=== PATIENT | male | born 1980 ===

== ENCOUNTER 2016-09-14 07:17 | Emergency (ER) | payer MEDICAID ==
--- NOTE | 2016-09-14 10:18 | UC ---
Terra Oliveros Salem, scribed for Jennifer Scott DO on 09/14/16 at 0823 . Skin Complaint HPI - HPI Summary HPI Summary: Patient is a 35 y/o male who presents to the with edema and 7/10 pain behind his left knee since yesterday morning. He reports erythema, tenderness, warmth to touch, and soreness, but denies fever, chills, coughing, abd pain, CP, or headache. Pt states that onset was sudden and suspects a spider bite. He reports that sx began 30 minutes after putting on pants. Pt denies any allergies. No hx of resistive skin infection. He reports concern because he will be traveling to [facility] recently. Patients medication reviewed this visit. - History of Current Complaint Chief Complaint: UCSkin Time Seen by Provider: 09/14/16 08:09 Stated Complaint: PAINFUL LUMP BEHIND KNEE Hx Obtained From: Patient, Family/Bounty Trapper - . Onset/Duration: Sudden Onset, Lasting Days, Still Present Timing: Constant Onset Severity: Moderate Current Severity: Moderate Pain Intensity: 7 Pain Scale Used: 0-10 Numeric Location: Other - Behind left knee. Character: Swelling, Pain, Redness Aggravating: Touch, Other - WALIKNG Alleviating: Nothing Associated Signs & Symptoms: Negative: Nausea, Vomiting, Fever, Chills, Cough, Abdominal Pain - Allergy/Home Medications Allergies/Adverse Reactions: Allergies Allergy/AdvReac Type Severity Reaction Status Date / Time No Known Allergies Allergy Verified 09/14/16 07:27 Review of Systems Constitutional: Negative Skin: Other - Edema and 7/10 pain behind the left knee. Erythema, tenderness, warmth to touch, and soreness. Eyes: Negative Cardiovascular: Negative Gastrointestinal: Negative Genitourinary: Negative All Other Systems Reviewed And Are Negative: Yes PMH/Surg Hx/FS Hx/Imm Hx Previously Healthy: Yes - Surgical History Surgical History: Yes Surgery Procedure, Year, and Place: biopsy - soft tissue mass on foot - Family History Known Family History: Positive: Other - Father - kidney transplant. Negative: Hypertension, Diabetes - Social History Occupation: Unemployed Lives: With Family Alcohol Use: Daily Alcohol Amount: 3 drinks at a time Substance Use Type: None Smoking Status (MU): Light Every Day Tobacco Smoker Cessation Counseling: Patient Advised to Stop Physical Exam Triage Information Reviewed: Yes Appearance: Well-Appearing, Well-Nourished, Pain Distress Vital Signs: Initial Vital Signs Temp 97.8 F 09/14/16 07:28 Pulse 96 09/14/16 07:28 Resp 18 09/14/16 07:28 BP 133/86 09/14/16 07:28 Pulse Ox 100 09/14/16 07:28 Vital Signs Reviewed: Yes Eyes: Positive: Conjunctiva Clear. Negative: Discharge ENT: Positive: Hearing grossly normal. Negative: Muffled/hoarse voice Neck exam: Normal Neck: Positive: Supple Respiratory: Positive: Lungs clear, Normal breath sounds, No respiratory distress, No accessory muscle use Cardiovascular: Positive: RRR, No Murmur Musculoskeletal Exam: Normal Neurological: Positive: Alert, Muscle Tone Normal Psychological: Positive: Normal Response To Family, Age Appropriate Behavior Skin Exam: Other - Area of erythema: 6cm across. Lower half: more erythema, more warmth, and indurated. No focal point, No fluctulance. Course/Dx - Differential Diagnoses - Skin Complaint Differential Diagnoses: Abscess, Cellulitis - Diagnoses Provider Diagnoses: Cellulitis. Discharge - Discharge Plan Condition: Stable Disposition: HOME Prescriptions: Sulfamethox/Trimethoprim DS* [Bactrim DS 800/160 TAB*] 1 tab PO BID #20 tab Patient Education Materials: Cellulitis (ED), Abscess (ED) Referrals: No Primary Care Phys,NOPCP [Medical Doctor] - Additional Instructions: ANTIBIOTIC THERAPY: You have been given an antibiotic prescription. It's important that you take all the medication, unless instructed otherwise by your physician. Failure to complete the entire course can result in relapse of your condition. Common side effects of antibiotics include nausea, intestinal cramping, or diarrhea. Women may develop vaginal yeast infections, and babies can get yeast (thrush) in the mouth following the use of antibiotics. Contact your physician if you develop significant side effects from this medication. Allergy to this antibiotic can result in hives, wheezing, faintness, or itching. If symptoms of allergy occur, stop the medication and call the doctor. ANY TIME YOU TAKE AN ANTIBIOTIC, IT IS IMPORTANT TO REPLENISH THE BODY'S BALANCE OF "GOOD" BACTERIA BY EATING HIGH QUALITY CULTURED FOOD SUCH YOGURT, SAURKRAUT OR SUNDEEP CHI AND/OR TAKING A PROBIOTIC SUPPLEMENT. As discussed, you do not appear to have an abscess at this time. However, it is possible that your infection could develop into an abscess. So, if you feel that there is a squishy water balloon like structure developing within the infected area, return for re-evaluation and possible drainage. The documentation as recorded by the scribeTerra Salem accurately reflects the service I personally performed and the decisions made by me, Jennifer Scott DO.
== END 2016-09-14 08:55 | disposition home or self-care (01) ==
LOC: UCEAST 07:17
DX: L03.116 Cellulitis of left lower limb (principal); F17.210 Nicotine dependence, cigarettes, uncomplicated
CPT/HCPCS: 99202; G0463

== ENCOUNTER 2016-10-02 07:02 | Emergency (ER) | payer MEDICAID ==
--- NOTE | 2016-10-02 12:46 | UC ---
Jensen Oliveros Claudia, scribed for Traci Becker MD on 10/02/16 at 0723 . HPI Wound/Suture Re-check - HPI Summary HPI Summary: 35 year old male presents to the [facility] with a wound recheck. The pt visited [facility] and saw Dr. Scott on September 14 for an erythematous area to the posterior aspect of his left knee. Pt states that the 10 day dosage of Bactrim prescribed helped. The pt notes that the antibiotics ended about 1 week ago and the pain and redness has returned this weekend and concerned him so he decided to return. Pt does not recall if he got bit by any insect. Pt thinks he has had a UTD tetanus within the last 10 years. Pt denies any other associated Sx including cough cold, sinus pressure and any alleviating factors. Pt notes that he applied coconut oil twice and it seemed to aggravate his Sx. Pt notes he has been using an antibacterial body wash a few times as recommended by . - History Of Current Complaint Stated Complaint: WOUND RECHECK Hx Obtained From: Patient Onset/Duration: Lasting Weeks, Still Present, Worse Since - this weekend - Allergies/Home Medications Allergies/Adverse Reactions: Allergies Allergy/AdvReac Type Severity Reaction Status Date / Time No Known Allergies Allergy Verified 10/02/16 07:12 PMH/Surg Hx/FS Hx/Imm Hx Previously Healthy: Yes - Surgical History Surgical History: Yes Surgery Procedure, Year, and Place: biopsy - soft tissue mass on foot - Family History Known Family History: Positive: Other - Father - kidney transplant. Negative: Hypertension, Diabetes - Social History Occupation: Employed Full-time Alcohol Use: Daily Alcohol Amount: 3 drinks at a time Substance Use Type: None Smoking Status (MU): Light Every Day Tobacco Smoker Household Exposure Type: Cigarettes Cessation Counseling: Patient Advised to Stop Review of Systems Constitutional: Negative Skin: Rash - ERYTHEMATOUS, BLANCHING RASH TO THE POSTERIOR ASPECT OF HIS LEFT KNEE Eyes: Negative ENT: Negative Respiratory: Negative - NO COUGH Cardiovascular: Negative Gastrointestinal: Negative Genitourinary: Negative Motor: Negative Neurovascular: Negative Musculoskeletal: Negative Neurological: Negative Psychological: Negative All Other Systems Reviewed And Are Negative: Yes Physical Exam Triage Information Reviewed: Yes Vital Signs: Initial Vital Signs Temp 98.2 F 10/02/16 07:07 Pulse 83 10/02/16 07:07 Resp 16 10/02/16 07:07 BP 158/80 10/02/16 07:07 Pulse Ox 100 10/02/16 07:07 - Additional Comments * Appearance: Well-Nourished * Eye Exam: Normal * ENT Exam: Normal * Only if she checked: Neck: Normal, No adenopathy appreciated * Respiratory Exam: Normal, no dyspnea, no tachypnea, normal respiratory rate * Cardiovascular Exam: Normal * Cardiovascular: Heart rate regular, good general skin color, good capillary refill * RRR, No Murmur, Pulses Normal - sitting up. heart rate correlates w left radial pulse (if relevant), Brisk Capillary Refill * Abdominal Exam: Normal * Abdomen Description: Nontender, No Organomegaly, Soft * Bowel Sounds: Present * Musculoskeletal Exam: Normal * Musculoskeletal: Strength Intact * Neurological Exam: Normal: nonfocal, grossly intact * Psychological Exam: Normal: conversing easily and appropriately * Skin Exam: There is a mildly erythematous blanching area posterior mid knee. 10cm max length 12cm max width There is a central area of deeper non blanching discoloration, no fluctuance, no induration, distal pulse nml with no posterior knee tenderness. No jacob evidence of abscess or fluctuance. Course/Dx - Course Course Of Treatment: No new problems in CCC. + cellulitis R post knee. recurrent etiology unclear. Considered but not c/w clot. Reviewed the importance of f/u with pcp (he thinks that he has an assigned pcp, will schedule appt.) - Differential Dx - Laceration/Wound Provider Diagnoses: Cellulitis R post knee Discharge - Discharge Plan Condition: Stable Disposition: HOME Prescriptions: Sulfamethox/Trimethoprim DS* [Bactrim DS 800/160 TAB*] 1 tab PO BID #20 tab Patient Education Materials: Cellulitis (ED) Referrals: No Primary Care Phys,NOPCP [Primary Care Provider] - [facility] [place] PH[facility]ICIAN REFERRAL [Outside] (PLEASE CONTACT A PRIMARY CARE PHYSICIAN ) Additional Instructions: Elevate leg as much as possible. Avoid astringents as discussed. Probiotic and / or yogurt while taking antibiotiic Confirm tetanus immunization status. The documentation as recorded by the Jensen solomon Claudia accurately reflects the service I personally performed and the decisions made by me, Traci Becker MD.
== END 2016-10-02 07:45 | disposition home or self-care (01) ==
LOC: UCEAST 07:02
DX: L03.115 Cellulitis of right lower limb (principal); B96.89 Other specified bacterial agents as the cause of diseases classified elsewhere; F17.210 Nicotine dependence, cigarettes, uncomplicated
CPT/HCPCS: 99212; G0463